=== PATIENT | female | born 1980 | race Caucasian/White ===

== ENCOUNTER 2017-04-23 22:36 | Observation (INO) ==
[2017-04-23 23:11] LABS: Bilirubin,Urine Small (Negative); Blood,Urine Moderate (Negative); Clarity,Urine Cloudy (Clear); Color,Urine Dark Yellow (Yellow); Glucose,Urine (UA) Normal (Normal); Ketones,Urine Negative (Negative); Leukocyte Esterase,Urine Small (Negative); Nitrite,Urine Negative (Negative); Protein,Urine Negative (Neg-Trace); Specific Gravity,Urine 1.024 (1.010-1.025); Urobilinogen,Urine Normal (Normal)
[2017-04-23 23:13] LABS: Bacteria,Urine Moderate per hpf (None-Few); Hyaline Casts,Urine Few per lpf (None-Few); Squamous Epithelial Cell,Urine Many per lpf (None-Few); WBC,Urine 15-30 per hpf (0-3)
[2017-04-23 23:24] LABS: Basophils # 0.1 K/mcL (0.0-0.2); Basophils % 0.3 %; Eosinophils # 0.1 K/mcL (0.0-0.6); Eosinophils % 0.5 %; Hematocrit 38.4 % (35.3-44.9); Hemoglobin 13.5 g/dL (11.5-15.4); Immature Granulocytes % 0.3 % (0-4); Lymphocytes % 5.5 %; Mean Corpuscular HGB Conc 35.2 g/dL (31.6-35.5); Mean Corpuscular Hemoglobin 29.4 pg (28.0-33.3); Mean Corpuscular Volume 83.7 fL (83.0-100.0); Mean Platelet Volume 10.3 fL (9.4-12.4); Monocytes # 1.2 K/mcL (0.0-1.3); Neutrophils # 15.4 K/mcL (1.6-8.9); Platelet Count 264 K/mcL (140-400); Red Blood Count 4.59 M/mcL (3.82-4.97); Red Cell Distribution Width 12.5 % (11.5-14.5); Segmented Neutrophils % 86.4 %
[2017-04-23 23:45] LABS: Alanine Aminotransferase 14 Units/L (7-52); Albumin 4.5 g/dL (3.5-5.7); Albumin/Globulin Ratio 1.9 (1.1-2.2); Alkaline Phosphatase 40 Units/L (34-104); Amylase 41 Units/L (29-103); Aspartate Amino Transferase 11 Units/L (13-39); BUN/Creatinine Ratio 18 (6-26); Bilirubin,Direct 0.1 mg/dL (0.0-0.2); Bilirubin,Indirect 0.6 mg/dL (0.0-1.2); Bilirubin,Total 0.7 mg/dL (0.3-1.0); Blood Urea Nitrogen 14 mg/dL (6-20); Calcium 9.2 mg/dL (8.6-10.3); Carbon Dioxide 25 mEq/L (23-29); Chloride 105 mEq/L (98-107); Globulin 2.4 g/dL (2.4-3.5); Glucose 128 mg/dL (70-105); Lipase 30 Units/L (11-82); Osmolality,Calculated 284 (280-300); Potassium 3.8 mEq/L (3.5-5.1); Sodium 136 mEq/L (136-145); Total Protein 6.9 g/dL (6.4-8.9); eGFR For African Americans > 60 (> 60); eGFR For Non-African Americans > 60 (> 60)
--- NOTE | 2017-04-24 01:07 | Emergency Department Note ---
Disposition Clinical Impression: Abdominal pain Qualifiers: Abdominal location: right lower quadrant Qualified Code(s): R10.31 - Right lower quadrant pain Acute appendicitis Qualifiers: Acute appendicitis type: unspecified acute appendicitis type Qualified Code(s) : K35.80 - Unspecified acute appendicitis Disposition: Admitted As Inpatient Condition: Good Time of Disposition: 01:42 Abdominal Pain HPI - General Chief Complaint: ED Abdominal Pain Stated Complaint: abdominal pain Time Seen by Provider: 04/23/17 23:54 Source: patient, family Mode of arrival: ambulatory Limitations: no limitations Nursing Notes Reviewed: Yes Vital Signs Reviewed: Yes - History of Present Illness HPI Narrative: 36-year-old otherwise healthy female presented for evaluation of abdominal pain. Patient states in some onset was earlier this morning around 5:30. Patient states pain was initially in the epigastrium and then migrated to the right lower quadrant. Patient denies any fevers. Reports some nausea but no emesis. Reports some diarrhea. Denies any vaginal bleeding or discharge. Patient took Motrin prior to arrival. No notable fevers. No vaginal bleeding or discharge. No chest pain or shortness of breath. Patient's last by mouth intake was around 5:30 this evening. Pain Scale: 8 - Related Data Home Medications Medication Instructions Recorded Confirmed Xyzal DAILY 04/24/17 Allergies Allergy/AdvReac Type Severity Reaction Status Date / Time No Known Allergies Allergy Verified 04/23/17 22:50 All systems ED: reviewed and negative except as stated. Constitutional: Reports: as per HPI. Denies: fever Eyes: Reports: as per HPI ENT ED: Reports: as per HPI Cardiovascular: Reports: as per HPI. Denies: chest pain Respiratory: Reports: as per HPI. Denies: cough, dyspnea Gastrointestinal: Reports: as per HPI, abdominal pain, nausea, diarrhea. Denies : vomiting, constipation Genitourinary: Reports: as per HPI Musculoskeletal: Reports: as per HPI Integumentary: Reports: as per HPI Neurological: Reports: as per HPI Psychiatric: Reports: as per HPI Endocrine: Reports: as per HPI Hematological/Lymphatic: Reports: as per HPI Abdominal Pain PMH - Past Medical History Medical history: Reports: other Female Surgical History: Reports: Tonsillectomy, other [employer] history: Reports: non-contributory Psychiatric history: Reports: no psych history - Social History Smoking status: Never smoker Alcohol use: Reports: rarely Drug use: Reports: none Physical Exam - General Limitations: no limitations General appearance: alert, in no apparent distress - Head Head exam: atraumatic, normocephalic, normal inspection - Eye Eye exam: Present: normal appearance, PERRL, EOMI - ENT ENT exam: normal exam, normal oropharynx, mucous membranes moist - Neck Neck exam: Present: normal inspection, full ROM, trachea midline - Chest Chest inspection: Present: normal inspection, symmetric chest wall rise - Respiratory Respiratory exam: Present: normal lung sounds bilaterally - Cardiovascular Cardiovascular exam: Present: regular rate, normal rhythm, normal heart sounds - Abdominal Exam Abdominal exam: Present: soft, tenderness (Moderate right lower quadrant tenderness with deep palpation). Absent: Non-Tender, distention, guarding, rebound, rigidity - Extremities Exam Extremities exam: Present: normal inspection - Back Exam Back exam: Present: normal inspection. Absent: CVA tenderness (R), CVA tenderness (L) - Neurological Exam Neurological exam: Present: alert, oriented X3 - Skin Skin exam: Present: warm, dry, intact, normal color. Absent: rash Course Course Narrative: Patient seen and examined upon arrival. Patient appears to be in no acute distress. Patient is denying any need for pain medication at this time. Patient had labs ordered from triage. Patient did have a leukocytosis and right lower quadrant pain. Patient will get a CT scan abd/pelvis. - Reevaluation(s) Reevaluation #1: Patient seen and examined. Patient's repeat abdominal exam is unchanged. Patient is aware that she has acute appendicitis. Patient will be admitted to the surgical service. Time: 01:41 - Consultations Consultation #1: Spoke with Dr. Patel who admitted the patient to his service. Time: 01:41 Vital Signs Temperature 99.1 F 04/23/17 22:51 Pulse Rate 83 04/23/17 22:51 Respiratory Rate 18 04/23/17 22:51 Blood Pressure 112/68 04/23/17 22:51 O2 Sat by Pulse Oximetry 97 04/23/17 22:51 Temperature 98.5 F 04/24/17 03:37 Pulse Rate 70 04/24/17 03:37 Respiratory Rate 14 04/24/17 03:37 Blood Pressure 98/62 04/24/17 03:37 O2 Sat by Pulse Oximetry 97 04/24/17 03:37 Oxygen Delivery Oxygen Delivery Room Air Abdominal Pain - Lab Data Result diagrams: 04/23/17 23:09 04/23/17 23:09 Lab Results 04/23/17 04/23/17 04/23/17 Range/Units 23:00 23:00 23:09 WBC 17.8 H (4.3-11.1) K/mcL RBC 4.59 (3.82-4.97) M/mcL Hgb 13.5 (11.5-15.4) g/dL Hct 38.4 (35.3-44.9) % MCV 83.7 (83.0-100.0) fL MCH 29.4 (28.0-33.3) pg MCHC 35.2 (31.6-35.5) g/dL RDW 12.5 (11.5-14.5) % Plt Count 264 (140-400) K/mcL MPV 10.3 (9.4-12.4) fL Immature Gran % 0.3 (0-4) % Seg Neutrophils % 86.4 % Lymphocytes % 5.5 % Monocytes % 7.0 % Eosinophils % 0.5 % Basophils % 0.3 % Neutrophils # 15.4 H (1.6-8.9) K/mcL Lymphocytes # 1.0 (0.6-4.6) K/mcL Monocytes # 1.2 (0.0-1.3) K/mcL Eosinophils # 0.1 (0.0-0.6) K/mcL Basophils # 0.1 (0.0-0.2) K/mcL Sodium (136-145) mEq/L Potassium (3.5-5.1) mEq/L Chloride (98-107) mEq/L Carbon Dioxide (23-29) mEq/L BUN (6-20) mg/dL Creatinine (0.60-1.20) mg/dL Est GFR ( Amer) (> 60) Est GFR (Non-Af Amer) (> 60) BUN/Creatinine Ratio (6-26) Glucose (70-105) mg/dL Calculated Osmolality (280-300) Calcium (8.6-10.3) mg/dL Total Bilirubin (0.3-1.0) mg/dL Direct Bilirubin (0.0-0.2) mg/dL Indirect Bilirubin (0.0-1.2) mg/dL AST (13-39) Units/L ALT (7-52) Units/L Alkaline Phosphatase (34-104) Units/L Serum Total Protein (6.4-8.9) g/dL Albumin (3.5-5.7) g/dL Globulin (2.4-3.5) g/dL Albumin/Globulin Ratio (1.1-2.2) Amylase (29-103) Units/L Lipase (11-82) Units/L Urine Color Dark Yellow (Yellow) Urine Clarity Cloudy A (Clear) Urine pH 5.0 (5.0-8.0) pH Units Ur Specific [place] 1.024 (1.010-1.025) Urine Protein Negative (Neg-Trace) mg/dL Urine Glucose (UA) Normal (Normal) mg/dL Urine Ketones Negative (Negative) mg/dL Urine Blood Moderate H (Negative) Urine Nitrite Negative (Negative) Urine Bilirubin Small H (Negative) Urine Urobilinogen Normal (Normal) mg/dL Ur Leukocyte Esterase Small H (Negative) Urine Microscopic RBC 5-15 H (0-3) per hpf Urine Microscopic WBC 15-30 H (0-3) per hpf Ur Squamous Epith Cells Many H (None-Few) per lpf Urine Bacteria Moderate H (None-Few) per hpf Hyaline Casts Few (None-Few) per lpf Ur Culture Indicated? NO. (NO) Urine Test Negative (Negative) 04/23/17 Range/Units 23:09 WBC (4.3-11.1) K/mcL RBC (3.82-4.97) M/mcL Hgb (11.5-15.4) g/dL Hct (35.3-44.9) % MCV (83.0-100.0) fL MCH (28.0-33.3) pg MCHC (31.6-35.5) g/dL RDW (11.5-14.5) % Plt Count (140-400) K/mcL MPV (9.4-12.4) fL Immature Gran % (0-4) % Seg Neutrophils % % Lymphocytes % % Monocytes % % Eosinophils % % Basophils % % Neutrophils # (1.6-8.9) K/mcL Lymphocytes # (0.6-4.6) K/mcL Monocytes # (0.0-1.3) K/mcL Eosinophils # (0.0-0.6) K/mcL Basophils # (0.0-0.2) K/mcL Sodium 136 (136-145) mEq/L Potassium 3.8 (3.5-5.1) mEq/L Chloride 105 (98-107) mEq/L Carbon Dioxide 25 (23-29) mEq/L BUN 14 (6-20) mg/dL Creatinine 0.80 (0.60-1.20) mg/dL Est GFR ( Amer) > 60 (> 60) Est GFR (Non-Af Amer) > 60 (> 60) BUN/Creatinine Ratio 18 (6-26) Glucose 128 H (70-105) mg/dL Calculated Osmolality 284 (280-300) Calcium 9.2 (8.6-10.3) mg/dL Total Bilirubin 0.7 (0.3-1.0) mg/dL Direct Bilirubin 0.1 (0.0-0.2) mg/dL Indirect Bilirubin 0.6 (0.0-1.2) mg/dL AST 11 L (13-39) Units/L ALT 14 (7-52) Units/L Alkaline Phosphatase 40 (34-104) Units/L Serum Total Protein 6.9 (6.4-8.9) g/dL Albumin 4.5 (3.5-5.7) g/dL Globulin 2.4 (2.4-3.5) g/dL Albumin/Globulin Ratio 1.9 (1.1-2.2) Amylase 41 (29-103) Units/L Lipase 30 (11-82) Units/L Urine Color (Yellow) Urine Clarity (Clear) Urine pH (5.0-8.0) pH Units Ur Specific [place] (1.010-1.025) Urine Protein (Neg-Trace) mg/dL Urine Glucose (UA) (Normal) mg/dL Urine Ketones (Negative) mg/dL Urine Blood (Negative) Urine Nitrite (Negative) Urine Bilirubin (Negative) Urine Urobilinogen (Normal) mg/dL Ur Leukocyte Esterase (Negative) Urine Microscopic RBC (0-3) per hpf Urine Microscopic WBC (0-3) per hpf Ur Squamous Epith Cells (None-Few) per lpf Urine Bacteria (None-Few) per hpf Hyaline Casts (None-Few) per lpf Ur Culture Indicated? (NO) Urine Test (Negative) S.B.A.R. - S.B.A.R. Situation: Demographics Background: Presenting Complaint Assessment: Vital Signs, Course and respsone to treatment, Patient/Family Expectation Recommendation: Barrier(s) to disposition, Recommendation based on pending studies, treatments, or consults S.B.A.R. Report Given to: Dr. Jorge Gardner Repor Time: 01:44 Attestation Statement - Attestation Attestation: I, Danish Lechuga MD, personally evaluated this patient and discussed their management with the resident physician. I reviewed the resident's note and agree with the documented findings, medical decision making, and plan of care. 36-year-old female presents to the emergency department with a complaint of acute onset of right lower quadrant abdominal pain at 5:30 PM this evening. No fever. Some nausea but no vomiting. No GI bleed symptoms. No UTI symptoms. Patient does have a history of ovarian cyst in the past. LMP was 12/3 and she does not take any control. On examination patient is a well-developed well-nourished well-appearing female in no acute distress. She is alert and oriented 3. There is no cyanosis or diaphoresis. Breath sounds are clear and equal bilaterally. Heart regular rate and rhythm. Abdomen is soft with normal bowel sounds. There is mild-to- moderate tenderness in the right lower quadrant with mild guarding. No rebound tenderness. No CVA tenderness. Labs revealed. CT shows acute appendicitis with no evidence of perforation or abscess. The surgeon on-call, Dr. Patel, was consulted and accepted admission of the patient to his service.
[2017-04-24] MEDS ORDERED: Ondansetron 4 MG/2 ML VIAL IVP PRN ×2 (01:45→09:54)
[2017-04-24] MEDS ORDERED: *HR* Morphine 2 MG/ML SYRINGE IVP PRN ×3 (01:45→09:54)
[2017-04-24] MEDS ORDERED: cefOXitin 2,000 MG in Water for inj. (sterile) 10 ML IVP ONE (01:48)
[2017-04-24] MEDS ORDERED: D5% in 0.45% NACL w KCl 20 MEQ/1,000 ML MLS IVC SCH ×2 (02:00→09:54)
--- NOTE | 2017-04-24 08:57 | General Surgery Consult Note ---
Date of Encounter: 04/24/17 Time of Encounter: 08:10 Past Med Surg Social Fam HX - Past Medical History Medical history: other Psychiatric history: no psych history - Social History Smoking Status: Never smoker Smokeless Tobacco Status: No Alcohol use: rarely Drug use: none Medications and Allergies Xyzal 10 mg PO DAILY 04/24/17 [History] 3 Allergy/AdvReac Type Severity Reaction Status Date / Time No Known Allergies Allergy Verified 04/23/17 22:50 Review of Systems All systems PM: A 10-system review of systems was performed and is negative for pertinent findings except as documented above in the HPI. General Surgery Exam Initial Vital Signs Temp Pulse Resp BP Pulse Ox 99.1 F 83 18 112/68 97 04/23/17 22:51 04/23/17 22:51 04/23/17 22:51 04/23/17 22:51 04/23/17 22:51 Exam Initial Vital Signs Temp Pulse Resp BP Pulse Ox 99.1 F 83 18 112/68 97 04/23/17 22:51 04/23/17 22:51 04/23/17 22:51 04/23/17 22:51 04/23/17 22:51 Results - Labs 04/23/17 23:09 04/23/17 23:09 Abnormal lab results WBC 17.8 K/mcL (4.3-11.1) H 04/23/17 23:09 Neutrophils # 15.4 K/mcL (1.6-8.9) H 04/23/17 23:09 Glucose 128 mg/dL (70-105) H 04/23/17 23:09 AST 11 Units/L (13-39) L 04/23/17 23:09 Urine Clarity Cloudy (Clear) A 04/23/17 23:00 Urine Blood Moderate (Negative) H 04/23/17 23:00 Urine Bilirubin Small (Negative) H 04/23/17 23:00 Ur Leukocyte Esterase Small (Negative) H 04/23/17 23:00 Urine Microscopic RBC 5-15 per hpf (0-3) H 04/23/17 23:00 Urine Microscopic WBC 15-30 per hpf (0-3) H 04/23/17 23:00 Ur Squamous Epith Cells Many per lpf (None-Few) H 04/23/17 23:00 Urine Bacteria Moderate per hpf (None-Few) H 04/23/17 23:00 All other labs normal. Consult Discharge Plan - Plan Referrals: Abby Sibley MD [Primary Care Provider] -
--- NOTE | 2017-04-24 09:08 | General Surg History&Physical ---
Date of Encounter: 04/24/17 Time of Encounter: 08:15 Assessment and Plan (1) Acute appendicitis Current Visit: Yes Status: Acute The assessment and plan as outlined above was discussed with the patient and/or family members who expressed understanding and agreement. All questions were answered. +Mcburney's, Mauro's, and Rovsing's signs. Positive anorexia, CT, and WBC (17.8 ). She is recommended to complete a laparoscopic appendectomy in the next 24 to 48 hours. Benefits, risks, and recommendations were reviewed at length with patient and she is agreeable to proceed. Her signed consent is on the hard chart. Plan: NPO IVF Discomfort management GI and DVT prophylaxis Continue IV ATBX Qualifiers: Acute appendicitis type: with localized peritonitis Qualified Code(s): K35.3 - Acute appendicitis with localized peritonitis History of Present Illness Chief complaint: Right lower quadrant pain HPI: Ms. Holley is a 36 year old female who reports a past medical history of ovarian cysts (of which she is unable to recall the last time she had a cyst), a surgical history of removal of ovarian cyst, a right breast (benign) lumpectomy, and a tonsillectomy. She denies smoking history, ETOH, or drug use. She is and employed full-time as a secondary school special ed teacher. She presented on 04/24/2017 at approximately 0 100 in the a.m. following an abrupt onset of abdominal pain around her belly button that then navigated and stayed at the right lower quadrant. She reported that discomfort as an 8/10, sharp, aggravated by coughing, the car ride, standing, yawning, or attempting to recline back. She denied alleviating factors. Shortly after she began having the abdominal pain she felt nauseated and had an episode diarrhea. She denied fevers or chills, dizziness, chest pain, shortness of breath, changes in bowel habits, black, bloody, or tarry stool, and denies daily medication use. Her last menstrual period was March 23/2017. She denies at this time. Her hospital course thus far has included a negative test in the emergency department, a positive white blood cell count 17.8, and a CT of the abdomen and pelvis with IV and no oral contrast which revealed mildly isolated appendix measuring 10 mm and a mild degree of inflammatory stranding in the periappendiceal fat. There is no free fluid or focal fluid collection noted, consistent with acute appendicitis. She has been treated with IV fluids, IV cefoxitin, and pain medication. She states the pain medication has been effective and her right lower quadrant is feeling only sore at this time. Past Med Surg Social Fam HX - Past Medical History Source: patient Medical history: other (Ovarian cyst) Psychiatric history: no psych history - Past Surgical History Surgical History: other (Tonsillectomy; ovarian cyst removal) - Social History Smoking Status: Never smoker Smokeless Tobacco Status: No Alcohol use: rarely Drug use: none Occupational status: unemployed Current living situation: Home - Independent Activity Level: Independent ambulation Recent Out of Country Travel Within the Last 8 Weeks: No Exposure or Possible Exposure to Illness During Travel: No - Family History Sister Adopted: No Race: Family Member Ethnicity: Non- Living Status: Still Living Hx Family Cancer: Yes (Breast cancer) Grandmother Hx Family Cancer: Yes (Breast cancer) Medications and Allergies Xyzal 10 mg PO DAILY 04/24/17 [History] 3 Allergy/AdvReac Type Severity Reaction Status Date / Time No Known Allergies Allergy Verified 04/23/17 22:50 Review of Systems All systems PM: reviewed and no additional remarkable complaints except as stated All systems PM: A 10-system review of systems was performed and is negative for pertinent findings except as documented above in the HPI. General Surgery Exam Initial Vital Signs Temp Pulse Resp BP Pulse Ox 99.1 F 83 18 112/68 97 04/23/17 22:51 04/23/17 22:51 04/23/17 22:51 04/23/17 22:51 04/23/17 22:51 - General physical appearance well developed, well nourished, no distress, moderate pain - Eyes normal ocular movement - ENT normal nares, normal mucosa, atraumatic, normocephalic - Neck no bruits, trachea midline, no venous distension - Respiratory normal expansion, normal respiratory effort, clear to auscultation - Cardiovascular Cardiovascular exam: Present: RRR - Abdomen Abdomen general surgery: Present: bowel sounds present, soft, tender Abdominal Tenderness: Present: RLQ Hernia: Present: none - Integumentary Integumentary general surgery: Present: warm and dry, no abnormal pigmentation - Neurologic Present: CN 2-12 grossly intact, normal coordination, normal sensation - Musculoskeletal Present: normal gait, normal posture - Psychiatric Psychiatric general surgery: Present: A&Ox3, appropriate, oriented to person, oriented to place, oriented to time, speech is normal, memory intact Results - Labs 04/23/17 23:09 04/23/17 23:09 Abnormal lab results WBC 17.8 K/mcL (4.3-11.1) H 04/23/17 23:09 Neutrophils # 15.4 K/mcL (1.6-8.9) H 04/23/17 23:09 Glucose 128 mg/dL (70-105) H 04/23/17 23:09 AST 11 Units/L (13-39) L 04/23/17 23:09 Urine Clarity Cloudy (Clear) A 04/23/17 23:00 Urine Blood Moderate (Negative) H 04/23/17 23:00 Urine Bilirubin Small (Negative) H 04/23/17 23:00 Ur Leukocyte Esterase Small (Negative) H 04/23/17 23:00 Urine Microscopic RBC 5-15 per hpf (0-3) H 04/23/17 23:00 Urine Microscopic WBC 15-30 per hpf (0-3) H 04/23/17 23:00 Ur Squamous Epith Cells Many per lpf (None-Few) H 04/23/17 23:00 Urine Bacteria Moderate per hpf (None-Few) H 04/23/17 23:00 All other labs normal. - Imaging CT scan - abdomen: report reviewed CT scan - pelvis: report reviewed Additional studies: Abdomen/Pelvis CT 04/24/17 01:04 IMPRESSION: 1. Acute appendicitis with no evidence of perforation or abscess. 2. No other significant findings. D/ / Jhon Mckinley MD / Jhon Mckinley MD Interpreting Provider: Jhon Mckinley MD - Patient Status Disposition: Still a Patient Condition: Good - Discharge Instructions Follow Up With: Abby Siblye MD [Primary Care Provider] -
[2017-04-24] MEDS ORDERED: *HR* HYDROmorphone (PF) 1 MG/ML SYRINGE IVP PRN ×3 (09:20→16:01)
[2017-04-24] MEDS ORDERED: *HR* Promethazine 25 MG/ML VIAL IVP PRN ×2 (09:20→09:54)
[2017-04-24] MEDS ORDERED: 0.9 % Sodium Chloride 1,000 ML IVC SCH (09:30)
[2017-04-24] MEDS: 0.9 % Sodium Chloride 1,000 ML IVC SCH ×2 (11:05→18:27)
[2017-04-24] MEDS: Ketorolac 15 MG/ML VIAL IVP SCH ×2 (11:06→18:25)
[2017-04-24] MEDS: Piperacillin/Tazobactam 3.375 GM/200 ML BAG IVPB SCH ×4 (11:10→18:31)
[2017-04-24] MEDS ORDERED: Ketorolac 15 MG/ML VIAL IVP SCH (12:00)
--- NOTE | 2017-04-24 14:35 | Anesthesia Evaluation PreOp ---
Date of Encounter: 04/24/17 Time of Encounter: 14:32 - Past History Planned Operation: Lap. Appy Cardiac History: Denies any Significant Hx Pulmonary History: Denies Any Significant HX HAND BINDER STRIPPER History: Denies Any Significant HX Other Medical History: Renal (Ston e) Anesthesia History: No Prior Anesthetic Complications, Past Anesthesia (D&C, Tosillectomy, Breast bx) : No Test: Negative (04/23/2017) Alcohol Use: rarely Drug use: none Medications and Allergies Xyzal 10 mg PO DAILY 04/24/17 [History] 3 Allergy/AdvReac Type Severity Reaction Status Date / Time No Known Allergies Allergy Verified 04/23/17 22:50 - Meds/Allergy Pre-op Review Medications Reviewed: Yes Allergies Reviewed: Yes Beta Blockers on Current Med List: No Anesthesia Results - Labs 04/23/17 23:09 04/23/17 23:09 Laboratory Tests 04/23/17 23:00 Urine Test Negative Anesthesia Exam O2 Sat Height 1.78 m Height 1.78 m Weight 90.3 kg Weight 90.718 kg O2 Sat by Pulse Oximetry 96 O2 Sat by Pulse Oximetry 96 O2 Sat by Pulse Oximetry 97 O2 Sat by Pulse Oximetry 97 Vital Signs Temp Pulse Resp BP Pulse Ox 99.1 F 83 18 112/68 97 04/23/17 22:51 04/23/17 22:51 04/23/17 22:51 04/23/17 22:51 04/23/17 22:51 Vital Signs/O2 Sat, Most Current Temp Pulse Resp BP Pulse Ox 98.1 F 82 20 103/67 96 04/24/17 11:51 04/24/17 11:51 04/24/17 11:51 04/24/17 11:51 04/24/17 11:51 Height: 5'10" Weight: 199# NPO (# of Hours): > 8 Hrs Pain Scale: 0 Pain Scale Used: Numeric (1 - 10) - HEENT Pupil (Motor): Pupils equal, EOMI Mallampati: I Teeth: Normal Oral Opening: Greater than 3 - HAND BINDER STRIPPER LOC: Oriented HAND BINDER STRIPPER Motor: Normal RUE, Normal LUE, Normal RLE, Normal LLE, Normal Face HAND BINDER STRIPPER Sensory: Normal: RUE, LUE, RLE, LLE, Face - Cardiac Rhythm: Regular Murmur: None JVD: No Carotid Bruit: No - Pulmonary Breath Sounds: bilateral Clear Respiratory Effort: Symmetrical Anesthesia Assess/Plan ASA Score: 1 Modified [place] Scale for Level of Consciousness: Cooperative, oriented, and tranquil Anesthetic Plan: General Autologous Blood: Yes Monitoring Plan: Standard Monitors Recovery Plan: PACU
[2017-04-24] MEDS ORDERED: *HR* Propofol 200 MG/20 ML VIAL IVP ONE (15:45)
[2017-04-24] MEDS ORDERED: *HR* Midazolam HCl 2 MG/2 ML VIAL ONE (15:45)
[2017-04-24] MEDS ORDERED: Lidocaine -MPF 2% 2 ML VIAL ONE (15:45)
[2017-04-24] MEDS ORDERED: *HR* FentaNYL (PF) 100 MCG/2 ML VIAL ONE (15:45)
[2017-04-24] MEDS ORDERED: Ondansetron 4 MG/2 ML VIAL ONE (15:45)
[2017-04-24] MEDS ORDERED: Dexamethasone 4 MG/ML VIAL ONE (15:45)
[2017-04-24] MEDS ORDERED: Lidocaine -MPF 4% 5 ML AMPUL ONE (15:47)
[2017-04-24] MEDS ORDERED: Piperacillin/Tazobactam 3.375 GM/200 ML BAG IVPB SCH (16:00)
[2017-04-24] MEDS ORDERED: Ondansetron 4 MG/2 ML VIAL IVP ONE (16:01)
[2017-04-24] MEDS ORDERED: Albuterol 2.5 MG/3 ML NEBULIZER IH ONE (16:01)
[2017-04-24] MEDS ORDERED: Naloxone 0.4 MG/ML INJ IVP PRN (16:01)
[2017-04-24] MEDS ORDERED: Ringers Solution, Lactated 1,000 ML IVC SCH (16:15)
[2017-04-24] MEDS ORDERED: CefOXitin 2,000 MG VIAL ONE (16:50)
[2017-04-24] MEDS ORDERED: Neostigmine Methylsulfate 3 MG/3 ML SYRINGE ONE (16:55)
--- NOTE | 2017-04-24 17:17 | Operative Note ---
Date of procedure: 04/24/17 Pre-op diagnosis: appendicitis Post-op diagnosis: same Procedure: Laparoscopic appendectomy Anesthesia: KRYSTINA Surgeon: Aníbal Patel Was there an surgical assistant certified present: Yes Senior Storage Engineer: Enid San Estimated blood loss (cc): 2 Specimen: appendix Condition: stable Procedure in Detail: After informed consent, patient was taken to the operating room placed in supine position. After adequate sedation anesthesia the abdomen was prepped and draped. A 12 mm cannula was placed in the umbilicus. A 5 mm cannulas placed in suprapubic region and the left lower quadrant. Camera was inserted and the abdomen after a pneumoperitoneum. 2 Radha graspers were used to identify the base of the appendix. A appendiceal window was created. A VALARIE endoscopic stapler was placed across the base. A vascular load was placed across the mesoappendix. Once the appendix was was placed in an Endobag and removed through the umbilicus. The right lower quadrant was suctioned dry no bleeding was identified. Remainder the pneumoperitoneum was evacuated. The umbilicus was closed with an 0 Vicryl suture in [id number] fashion. Skin was closed with 4-0 Vicryl suture and Dermabond.
--- NOTE | 2017-04-24 17:20 | Discharge Summary ---
Date of Encounter: 04/24/17 Time of Encounter: 17:18 - Discharge Diagnosis (1) Acute appendicitis Priority: Primary Status: Acute Qualifiers: Acute appendicitis type: with localized peritonitis Qualified Code(s): K35.3 - Acute appendicitis with localized peritonitis - Discharge Medications Prescriptions: HYDROcodone/Acet 5/325 mg [Kinta 5-325 mg] 1 tab PO Q6H PRN #10 tab PRN Reason: Pain Home Medications: HYDROcodone/Acet 5/325 mg [Kinta 5-325 mg] 1 tab PO Q6H PRN #10 tab 04/24/17 [Rx ] Xyzal 10 mg PO DAILY 04/24/17 [History] Allergies/Adverse Reactions: 3 Allergy/AdvReac Type Severity Reaction Status Date / Time No Known Allergies Allergy Verified 04/23/17 22:50 General Surgery Exam Initial Vital Signs Temp Pulse Resp BP Pulse Ox 99.1 F 83 18 112/68 97 04/23/17 22:51 04/23/17 22:51 04/23/17 22:51 04/23/17 22:51 04/23/17 22:51 - Respiratory normal respiratory effort - Abdomen Abdomen general surgery: Present: bowel sounds present, soft, tender Hernia: Present: incisional - Incision Incision: Present: clean and dry - Neurologic Present: CN 2-12 grossly intact Date of admission: 04/24/17 02:10 Primary care physician: Abby South - Patient Status Disposition: Home, Self-Care Condition: Good - Discharge Instructions Follow Up With: Abby Sibley MD [Primary Care Provider] - - Hospital Course Hospital course: Ms. Holley is a 36 year old female with acute appendicits. She tolerated surgery and is ready for discharge. - Time Spent with Patient Total time spent providing and/or coordinating discharge services: Labs on day of discharge: Labs from last 24 hours 04/24/17 11:33 POC Glucose 105 H
--- NOTE | 2017-04-24 17:40 | Anesthesia Evaluation Post Op ---
Date of Encounter: 04/24/17 Time of Encounter: 17:39 - Vital Signs Vital Signs: Vital Signs/O2 Sat, Most Current Temp Pulse Resp BP Pulse Ox 97.9 F 63 16 118/69 98 04/24/17 17:11 04/24/17 17:31 04/24/17 17:31 04/24/17 17:31 04/24/17 17:31 - Lungs Lungs: Clear Ascult./Percussion - Airway Airway: Non-obstructed - Cardiovascular Regular Rate - Mental Status Mental Status: Alert & Oriented, Answers Appropriately - Pain Pain Scale: 0 Pain Scale used: Numeric (1 - 10) - Nausea Vomiting Nausea Vomiting: Not Present - Hydration Hydration: Ice chips, Has not voided - Discharge PostOp Status: Transfer Patient to floor
[2017-04-24 20:17] VITALS: BP 120/72
[2017-04-25] MEDS ORDERED: Pantoprazole 40 MG VIAL IVP SCH ×2 (09:00)
== END 2017-04-24 21:13 | disposition home or self-care (01) ==
LOC: 3BNU 22:36 → EMEROO 22:36 → 3BNU 04-24 02:50 → 1NENUPED 04-24 10:13
PROVIDERS: ADMIT Surgery; ATTEND Surgery